=== PATIENT | male | born 1945 | race Caucasian/White ===

== ENCOUNTER → 2022-03-04 | Outpatient (CLI) | payer MEDICARE, OTHER ==
--- NOTE | 2022-03-04 17:13 | Diagnostic Imaging Report ---
PROCEDURE: MRI right joint lower extremity without contrast. TECHNIQUE: Multiplanar, multisequence non contrast-enhanced MRI of the right lower extremity was accomplished. INDICATION: Right knee pain. COMPARISON: None. FINDINGS: There is marked bone marrow edema in the medial femoral condyle. There does appear to be a linear hypointensity in the subcortical medial femoral condyle which is suspicious for a nondisplaced insufficiency fracture (image 7 series 3), but is not definitive. No other fracture is seen in the right knee. Alignment is normal. There are marginal osteophytes. There is a moderate right knee joint effusion. The articular cartilage in the patellofemoral compartment demonstrates full-thickness loss throughout the median ridge and lateral facet as well as the lateral trochlea with articular surface remodeling. There is significant flattening of the trochlea anteriorly. The articular cartilage in the medial compartment demonstrates mild thinning with surface irregularity and heterogeneity. The cartilage in the lateral compartment demonstrates mild heterogeneity with no full-thickness defects. The medial meniscus appears intact. The lateral meniscus has a vertical tear at the anterior horn. The anterior and posterior cruciate ligaments are intact. The medial collateral ligament is intact. The lateral collateral ligamentous complex appears intact. The extensor mechanism is intact. The medial and lateral retinacula are intact. There is generalized muscular atrophy. There is mild deep soft tissue edema about the knee and lower leg. IMPRESSION: 1. Bone marrow edema at the medial femoral condyle with questionable nondisplaced insufficiency fracture. 2. 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 3. Tearing of the lateral meniscus. 4. Moderate right knee joint effusion. Dictated by: Dictated on workstation # [id number]
== END ==
LOC: RAD 13:15
DX: S83.281A Other tear of lateral meniscus, current injury, right knee, initial encounter (principal); M17.11 Unilateral primary osteoarthritis, right knee; R60.0 Localized edema; X58.XXXA Exposure to other specified factors, initial encounter
CPT/HCPCS: 73721

== ENCOUNTER → 2022-03-14 | Outpatient (CLI) | payer MEDICARE, OTHER ==
[2022-03-14 16:10] LABS: BILIRUBIN,URINE NEGATIVE (NEGATIVE); CLARITY,URINE TURBID; COLOR,URINE YELLOW; GLUCOSE, URINE (UA) 3+ (NEGATIVE); KETONES,URINE NEGATIVE (NEGATIVE); LEUKOCYTE ESTERASE ,URINE 2+ (NEGATIVE); NITRITE,URINE NEGATIVE (NEGATIVE); PH,URINE 5.5 (5-9); PROTEIN,URINE TRACE (NEGATIVE)
[2022-03-14 16:29] LABS: BACTERIA,URINE TRACE /HPF; WBC,URINE TNTC /HPF
== END ==
LOC: LABNPT 15:54
PROVIDERS: ATTEND Internal Medicine
DX: I50.30 Unspecified diastolic (congestive) heart failure (principal); G25.0 Essential tremor; J18.9 Pneumonia, unspecified organism; R53.1 Weakness; R41.841 Cognitive communication deficit; R26.2 Difficulty in walking, not elsewhere classified; E11.22 Type 2 diabetes mellitus with diabetic chronic kidney disease
CPT/HCPCS: 81000; 87077; 87088; 87186